=== PATIENT | female | born 1980 | race Caucasian/White ===

== ENCOUNTER 2019-04-18 13:18 | Emergency (ER) | payer BC ==
[~2019-04-18] VITALS: Ht 167.6 cm; Wt 88.5 kg
[2019-04-18] MEDS ORDERED: SUMATRIPTAN SUCCINATE 6 MG/0.5 ML VIAL SQ ONE ×2 (13:41→13:45)
[2019-04-18] MEDS ORDERED: ACETAMINOPHEN ES 500 MG TABLET ONE (13:41)
--- NOTE | 2019-04-18 13:41 | NUR ---
1ST CONTACT with patient- AOx4, calm & breathing easily, NAD c/o migraine headaches. Pain medicines was given, pending relief
[2019-04-18] MEDS ORDERED: ACETAMINOPHEN 325 MG TABLET PO ONE (13:45)
--- NOTE | 2019-04-18 14:10 | NUR ---
Patient discharged to home in stable condition. Written and verbal after care instructions given. Patient verbalizes understanding of instructions.
[2019-04-18 14:11] VITALS: BP 112/70
== END 2019-04-18 14:14 | disposition home or self-care (01) ==
LOC: ER 13:18
DX: G43.109 Migraine with aura, not intractable, without status migrainosus (principal); E03.9 Hypothyroidism, unspecified; F32.9 Major depressive disorder, single episode, unspecified; F41.9 Anxiety disorder, unspecified; Z88.8 Allergy status to other drugs, medicaments and biological substances
CPT/HCPCS: 99283; J3030; A4663; A9150